=== PATIENT | female | born 1990 | race Two or more races ===

== ENCOUNTER 2022-03-24 00:31 | Emergency (ER) | payer BC, OTHER ==
[~2022-03-24] VITALS: Ht 154.9 cm; Wt 70.3 kg
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
--- NOTE | 2022-03-24 01:11 | NUR ---
URINE COLLECTED AND SENT TO LAB
--- NOTE | 2022-03-24 01:14 | NUR ---
DOCTOR OF DENTAL SURGERY AT PT'S BEDSIDE
--- NOTE | 2022-03-24 01:16 | NUR ---
GENERAL OFFICE ASSOCIATE AT PT'S BEDSIDE
[2022-03-24 01:40] LABS: BASOPHILS # (AUTO) 0.1 K/uL (0.0-0.2); BASOPHILS % (AUTO) 0.9 % (0.0-2.0); EOSINOPHILS % (AUTO) 2.4 % (0.0-6.0); HEMATOCRIT 37 % (33-45); HEMOGLOBIN 12.1 g/dL (11.5-14.8); LYMPHOCYTES % (AUTO) 40.6 % (20.0-44.0); MEAN CORPUSCULAR HGB CONC 33 g/dl (31.0-36.0); MEAN CORPUSCULAR VOLUME 85 fL (82-100); MONOCYTES # (AUTO) 0.5 K/uL (0.1-1.30); MONOCYTES % (AUTO) 6.4 % (2.0-12.0); NEUTROPHILS # (AUTO) 3.6 K/uL (1.8-8.9); NEUTROPHILS % (AUTO) 49.7 % (43.0-81.0); PLATELET COUNT (AUTO) 208 K/uL (150-450); RED BLOOD CELL COUNT(AUTO) 4.32 MIL/uL (4.0-5.2); WHITE BLOOD COUNT (AUTO) 7.3 K/uL (4.3-11.0)
[2022-03-24 01:54] LABS: CALCIUM, SERUM 8.9 mg/dL (8.5-10.1); CREATININE 0.9 mg/dL (0.6-1.3); POTASSIUM 3.6 mmol/L (3.5-5.1)
[2022-03-24 02:53] LABS: BILIRUBIN,DIRECT 0.1 mg/dL (0.0-0.2); BILIRUBIN,TOTAL 0.2 mg/dL (0.2-1.0)
[2022-03-24 02:54] LABS: ALBUMIN 4.1 g/dL (3.4-5.0); TOTAL PROTEIN, SERUM 7.9 g/dL (6.4-8.2)
[2022-03-24 04:27] VITALS: BP 121/70
--- NOTE | 2022-03-24 04:27 | NUR ---
Patient discharged to home in stable condition. Written and verbal after care instructions given. Patient verbalizes understanding of instruction.
== END 2022-03-24 05:50 | disposition home or self-care (01) ==
LOC: ER 00:33
DX: M54.2 Cervicalgia (principal); M25.561 Pain in right knee
CPT/HCPCS: 36415; 71045; 72125; 72170; 73564; 80048; 80076; 84703; 85025; 99285; L0172